=== PATIENT | male | born 1950 | race Caucasian/White ===

== ENCOUNTER 2021-12-31 03:00 | Emergency (ER) | payer MEDICARE ==
[2021-12-31] MEDS ORDERED: Morphine 4 MG/ML Syringe IVPUSH ONE (03:11)
[2021-12-31] MEDS ORDERED: Sodium Chloride 0.9% 1,000 ML IV ONE (03:11)
[2021-12-31] MEDS ORDERED: Acetaminophen/HYDROcodone 325-5 MG Tab PO ONE (05:33)
== END 2021-12-31 06:55 | disposition home or self-care (01) ==
LOC: JD.ED 03:00
DX: K86.2 Cyst of pancreas (principal); Z91.041 Radiographic dye allergy status; Z88.8 Allergy status to other drugs, medicaments and biological substances; Z79.899 Other long term (current) drug therapy
CPT/HCPCS: 36415; 74177; 80053; 81001; 83690; 85025; 96361; 96374; 99284; A9270; J2270; J7030